=== PATIENT | male | born 1935 | race Hispanic/Latino ===

== ENCOUNTER 2021-05-05 17:33 | Observation (INO) | payer OTHER ==
[~2021-05-05] VITALS: Ht 167.6 cm; Wt 72.6 kg
[2021-05-05 18:01] LABS: BASOPHILS % (AUTO) 0.6 % (0.0-5.0); EOSINOPHILS % (AUTO) 1.3 % (0.0-8.0); HEMATOCRIT 37.1 % (42-54); MEAN CORPUSCULAR HEMOGLOBIN 31.4 pg (27.0-33.0); MEAN CORPUSCULAR VOLUME 92.5 fL (79-99); MONOCYTES % (AUTO) 6.9 % (3.0-13.0); NEUTROPHILS % (AUTO) 76.3 % (40.0-77.0); PLATELET COUNT (AUTO) 195 K/uL (130-400); RED BLOOD CELL COUNT(AUTO) 4.01 MIL/uL (4.50-6.20); RED CELL DISTRIBUTION WIDTH 15.6 % (11.0-15.5); WHITE BLOOD COUNT (AUTO) 9.3 K/uL (4.8-10.8)
[2021-05-05 18:16] LABS: CARBON DIOXIDE 27 mmol/L (21-32); CHLORIDE 106 mmol/L (101-111); CREATININE 1.1 mg/dL (0.5-1.5); GLOMERULAR FILTR. RATE CALC 68 mL/min (>60); GLUCOSE,RANDOM 105 mg/dL (70-105); POTASSIUM 4.4 mmol/L (3.5-5.1); SODIUM SERUM 143 mmol/L (136-145); UREA NITROGEN, BLOOD 16 mg/dL (7-18)
[2021-05-05 18:21] LABS: ALANINE AMINOTRANSFERASE 21 U/L (12-78); ALBUMIN 3.4 g/dL (3.5-5.0); AMYLASE 54 U/L (25-115); ASPARTATE AMINOTRANSFERASE 21 U/L (10-37); BILIRUBIN,TOTAL 0.4 mg/dL (0.2-1.0); CREATINE KINASE, TOTAL 57 U/L (21-232); TOTAL PROTEIN, SERUM 7.8 g/dL (6.0-8.3)
[2021-05-05 18:40] LABS: LIPASE < 50 U/L (114-286)
[2021-05-05 20:32] LABS: APPEARANCE,URINE Clear (CLEAR); BILIRUBIN,URINE Negative (NEGATIVE); COLOR,URINE Yellow (YELLOW); GLUCOSE, URINE (UA) Negative (NEGATIVE); KETONES,URINE Negative (NEGATIVE); LEUKOCYTE ESTERASE ,URINE Moderate (NEGATIVE); NITRATE,URINE Negative (NEGATIVE); OCCULT BLOOD,URINE Negative (NEGATIVE); PROTEIN,URINE Negative (NEGATIVE)
[2021-05-05 20:42] LABS: BACTERIA,URINE Few /HPF (None Seen); MUCUS,URINE Rare LPF (None Seen); RBC,URINE 0-1 /HPF (0-1); SQUAMOUS EPITHELIAL CELL,UR Rare /HPF (0-2)
[2021-05-06] MEDS ORDERED: ONDANSETRON 4MG INJ IV PRN (01:00)
[2021-05-06] MEDS ORDERED: CEFTRIAXONE 1G VIAL IVP ONE (01:00)
[2021-05-06] MEDS ORDERED: MAGNESIUM CITRATE 296 ML SOLUTION PO ONE (01:00)
[2021-05-06] MEDS ORDERED: MAGNESIUM CITRATE 296 ML SOLUTION ONE (04:28)
[2021-05-06] MEDS ORDERED: CEFTRIAXONE 1G VIAL ONE (04:28)
[2021-05-06] MEDS: LACTATED RINGERS 1000ML 1,000 ML IV SCH ×3 (04:32→22:05)
[2021-05-06] MEDS: FAMOTIDINE 20MG TAB PO SCH (08:32)
[2021-05-06] MEDS: ENOXAPARIN SODIUM 40 MG/0.4 ML SYRINGE SQ SCH (08:34)
[2021-05-06] MEDS: LACTULOSE 20 GM/30 ML UDCUP PO SCH (16:11)
[2021-05-06 22:50] VITALS: BP 107/55
[2021-05-07] MEDS ORDERED: CEFTRIAXONE 1G VIAL IV SCH (01:00)
[2021-05-07] MEDS: LACTULOSE 20 GM/30 ML UDCUP PO SCH (03:56)
[2021-05-07 04:00] VITALS: BP 110/58
[2021-05-07] MEDS: LACTATED RINGERS 1000ML 1,000 ML IV SCH (06:00)
[2021-05-07 06:17] LABS: EOSINOPHILS % (AUTO) 7.4 % (0.0-8.0); HEMATOCRIT 32.9 % (42-54); LYMPHOCYTES % (AUTO) 21.9 % (21.0-51.0); MEAN CORPUSCULAR HEMOGLOBIN 31.4 pg (27.0-33.0); MEAN CORPUSCULAR HGB CONC 33.7 g/dL (32.0-36.0); MEAN CORPUSCULAR VOLUME 93.2 fL (79-99); MONOCYTES % (AUTO) 9.8 % (3.0-13.0); PLATELET COUNT (AUTO) 181 K/uL (130-400); RED BLOOD CELL COUNT(AUTO) 3.53 MIL/uL (4.50-6.20); RED CELL DISTRIBUTION WIDTH 15.9 % (11.0-15.5); WHITE BLOOD COUNT (AUTO) 5.8 K/uL (4.8-10.8)
[2021-05-07 06:36] LABS: MAGNESIUM 2.3 mg/dL (1.80-2.40); POTASSIUM 3.9 mmol/L (3.5-5.1)
[2021-05-07 08:10] VITALS: BP 100/53
[2021-05-07] MEDS: FAMOTIDINE 20MG TAB PO SCH (08:13)
[2021-05-07] MEDS: ENOXAPARIN SODIUM 40 MG/0.4 ML SYRINGE SQ SCH (08:14)
[2021-05-07] MEDS ORDERED: LEVO750T46 PO (10:18)
[2021-05-07] MEDS ORDERED: DOCU100T PO (10:35)
[2021-05-07 10:49] VITALS: BP 85/48
[2021-05-07 16:05] VITALS: BP 102/61
== END 2021-05-07 18:50 | disposition home or self-care (01) ==
LOC: EDH 17:33 → EDHIP 05-06 00:54 → 3AH 05-06 22:31
PROVIDERS: ADMIT Internal Medicine; ATTEND Internal Medicine
DX: K56.41 Fecal impaction (principal); R11.2 Nausea with vomiting, unspecified; N39.0 Urinary tract infection, site not specified; K57.90 Diverticulosis of intestine, part unspecified, without perforation or abscess without bleeding; N40.0 Benign prostatic hyperplasia without lower urinary tract symptoms; G20 Parkinson's disease; F02.80 Dementia in other diseases classified elsewhere, unspecified severity, without behavioral disturbance, psychotic disturbance, mood disturbance, and anxiety; E78.00 Pure hypercholesterolemia, unspecified; Z79.899 Other long term (current) drug therapy; Z51.5 Encounter for palliative care
CPT/HCPCS: 36415 ×2; 71045; 74018 ×2; 74176; 80048; 80053; 81001; 82150; 82550; 83690; 83735; 84484; 85025 ×2; 87088; 93005; 96361 ×2; 96372 ×2; 96374; 96376; 99285; G0378 ×42; J0696 ×2; J1650 ×2; J7120 ×2